=== PATIENT | female | born 1955 | race Caucasian/White ===

== ENCOUNTER 2021-05-17 15:52 | Emergency (ER) | payer OTHER ==
[~2021-05-17] VITALS: Ht 167.6 cm; Wt 101.2 kg
--- NOTE | 2021-05-17 15:55 | NUR ---
AMBULATED TO ER BED 9
[2021-05-17 16:07] VITALS: BP 214/75
[2021-05-17 16:27] LABS: BASOPHILS % (AUTO) 1.1 % (0.0-2.0); EOSINOPHILS # (AUTO) 0.1 K/uL (0-0.4); EOSINOPHILS % (AUTO) 3.1 % (0.0-4.0); HEMATOCRIT 34.2 % (36-48); LYMPHOCYTES % (AUTO) 22.7 % (20.5-51.1); MEAN CORPUSCULAR HEMOGLOBIN 26 pg (27-31); MEAN CORPUSCULAR HGB CONC 32 g/dL (33-37); MEAN CORPUSCULAR VOLUME 81.1 fL (80-94); MONOCYTES # (AUTO) 0.5 K/uL (0.8-1.0); MONOCYTES % (AUTO) 10.6 % (1.7-9.3); NEUTROPHILS # (AUTO) 2.8 K/uL (1.8-7.7); NEUTROPHILS % (AUTO) 62.5 % (42.2-75.2); PLATELET COUNT (AUTO) 230 K/uL (140-450); RED BLOOD CELL COUNT(AUTO) 4.22 MIL/uL (4.20-5.40); RED CELL DISTRIBUTION WIDTH 16.9 % (11.6-13.7); WHITE BLOOD COUNT (AUTO) 4.5 K/uL (4.8-10.8)
--- NOTE | 2021-05-17 16:33 | NUR ---
xray at bedside
[2021-05-17 16:49] LABS: ALBUMIN 3.5 g/dL (3.4-5.0); ANION GAP 13.3 (8-16); CARBON DIOXIDE 27.1 mmol/L (21-32); POTASSIUM 4.4 mmol/L (3.5-5.1); TOTAL BILIRUBIN 0.2 mg/dL (0.0-1.0)
--- NOTE | 2021-05-17 16:53 | NUR ---
AT PT BEDSIDE FOR RE-EVALAUTAION.
[2021-05-17 16:54] LABS: LIPASE 315 U/L (73-393)
--- NOTE | 2021-05-17 17:49 | NUR ---
Patient discharged with v/s stable. Written and verbal after care instructions given and explained. Patient verbalized understanding. Ambulatory with steady gait. All questions addressed prior to discharge. Advised to follow up with PMD.
[2021-05-17 17:51] VITALS: BP 146/64
== END 2021-05-17 17:51 | disposition home or self-care (01) ==
LOC: MED 15:52
DX: E11.65 Type 2 diabetes mellitus with hyperglycemia (principal)
CPT/HCPCS: 36415; 71045; 80053; 83690; 83880; 84484; 85025; 93005; 99285

== ENCOUNTER 2021-05-30 06:04 | Day surgery (SDC) | payer OTHER ==
[~2021-05-30] VITALS: Ht 157.5 cm; Wt 62.0 kg
[2021-05-30] MEDS ORDERED: BUPIVACAINE-MPF 0.25% 30 ML VIAL INJ ONE (07:29)
[2021-05-30] MEDS ORDERED: LIDOCAINE 1% 500 MG/50 ML VIAL ONE (07:30)
[2021-05-30] MEDS ORDERED: fentaNYL citrate 0.05 MG/ML VIAL ONE (07:46)
[2021-05-30] MEDS ORDERED: LIDOCAINE/EPI 1% 1:100000 20 ML VIAL INJ ONE ×2 (08:04→08:07)
[2021-05-30] MEDS ORDERED: LABETALOL 100 MG/20 ML VIAL ONE (08:20)
[2021-05-30] MEDS ORDERED: ROCURONIUM 50 MG/5 ML VIAL IV ONE (08:21)
[2021-05-30] MEDS ORDERED: PROPOFOL 200 MG/20 ML VIAL IV ONE (08:21)
[2021-05-30] MEDS ORDERED: hydrALAZINE 20 MG/ML VIAL ONE (08:37)
[2021-05-30] MEDS ORDERED: ONDANSETRON 4 MG/2 ML VIAL ONE (08:38)
[2021-05-30] MEDS ORDERED: CONJUGATED ESTROGENS VAG CREAM 42 GM TUBE VG SCH (09:00)
[2021-05-30] MEDS ORDERED: NEOSTIGMINE 1:1000 10 MG/10 ML VIAL ONE (09:01)
[2021-05-30] MEDS ORDERED: GLYCOPYRROLATE 0.2 MG/ML VIAL ONE ×5 (09:02)
== END 2021-05-30 12:15 | disposition home or self-care (01) ==
LOC: MDS 06:04 → MMU 06:12 → MDS 12:15
PROVIDERS: ATTEND Obstetrics & Gynecology
DX: N81.10 Cystocele, unspecified (principal); N39.3 Stress incontinence (female) (male); I10 Essential (primary) hypertension; E11.9 Type 2 diabetes mellitus without complications; E78.5 Hyperlipidemia, unspecified; E03.9 Hypothyroidism, unspecified; Z79.899 Other long term (current) drug therapy; Z20.822 Contact with and (suspected) exposure to COVID-19
CPT/HCPCS: 36415; 57240; 57288; 71045; 86886; 86900; 86901; 87426; 93005; C1713; J0360; J0690; J2001; J2405; J2704; J2710; J3010; J3490; J7060; J7120; Q0092